=== PATIENT | female | born 1940 | race Caucasian/White ===

== ENCOUNTER 2025-05-18 23:52 | Emergency (ER) | payer MEDICARE, OTHER ==
[~2025-05-18] VITALS: Ht 157.5 cm; Wt 39.9 kg
[2025-05-19] MEDS ORDERED: MORPHINE SULFATE 2 MG/1 ML DISP.SYRIN ONE (01:18)
[2025-05-19] MEDS ORDERED: ONDANSETRON 4 MG/2 ML VIAL ONE (01:18)
[2025-05-19] MEDS: ONDANSETRON 4 MG/2 ML VIAL IV ONE (01:29)
[2025-05-19] MEDS: MORPHINE SULFATE 2 MG/1 ML DISP.SYRIN IV ONE (01:29)
[2025-05-19] MEDS: IV NS 1000 ML 1,000 ML IV ONE (01:29)
[2025-05-19] MEDS ORDERED: ALPE1TAB5 MT (01:43)
[2025-05-19] MEDS ORDERED: HYDR-3980 MT (01:43)
[2025-05-19 04:30] VITALS: BP 126/77; TEMP 98; O2SAT 98
== END 2025-05-19 04:30 | disposition left against medical advice (07) ==
LOC: ER 23:55
DX: R10.84 Generalized abdominal pain (principal); Z85.3 Personal history of malignant neoplasm of breast; Z79.899 Other long term (current) drug therapy
CPT/HCPCS: 99285; 74176; 96374; 71045; 96361; 96375; 93005; J2405; J2270; J7040; A4606; A4663